=== PATIENT | male | born 1980 | race Hispanic/Latino ===

== ENCOUNTER → 2018-07-23 | Outpatient (CLI) | payer BC ==
--- NOTE | 2018-07-23 10:13 | Diagnostic Imaging Report ---
FLUOROSCOPIC BARIUM SWALLOW AND UPPER GI HISTORY: GERD LIQUOR GALLERY OPERATOR: Gisella Watson MD Comparison: None. Procedure: Double contrast barium swallow and upper GI fluoroscopic exam was performed using thick and thin oral barium and effervescent crystals. Radiation Exposure: Fluoroscopy Time: 0.7 minutes Radiation dose: 2.61 mGy DISCUSSION: ESOPHAGUS: Motility: Within normal limits.Normal motility with brisk clearance of contrast. Mucosa: Unremarkable. Distensibility: Normal. GASTROESOPHAGEAL JUNCTION: Unremarkable GASTROESOPHAGEAL REFLUX: Moderate inducible gastroesophageal reflux above the level of the alex with water siphon test. STOMACH: Normally distensible and demonstrates normal contours and mucosal pattern. DUODENUM: Unremarkable in appearance. IMPRESSION: Moderate inducible gastroesophageal reflux. Signed by: Dr. Gisella Watson MD on 07/23/2018 10:09 AM
== END ==
LOC: DX 08:54
PROVIDERS: ATTEND Family Medicine
DX: K21.9 Gastro-esophageal reflux disease without esophagitis (principal); R05 Cough
CPT/HCPCS: 74246